=== PATIENT | female | born 1980 | race African-American/Black ===

== ENCOUNTER 2017-01-04 23:20 | Emergency (ER) | payer OTHER ==
[2017-01-04] MEDS ORDERED: NO MEDICATIONS (23:32)
== END 2017-01-05 00:12 | disposition home or self-care (01) ==
LOC: SED 23:20
DX: K08.89 Other specified disorders of teeth and supporting structures (principal); F17.200 Nicotine dependence, unspecified, uncomplicated
CPT/HCPCS: 99282